=== PATIENT | female | born 1965 | race Caucasian/White ===

== ENCOUNTER → 2022-05-09 | Outpatient (CLI) | payer MEDICARE, OTHER ==
[~2022-05-09] MED LIST: CELEXA40 MG PO; DELSYM30 MG/5 ML PO; EXPECTORANT200 MG PO; FLONASE 0.05% N16 GM; IBUPROFEN800 MG PO; NEURONTIN 300300 MG PO; PENVEE K 500 M500 MG PO; PREDNISONE 50 M50 MG PO; PREMARIN0.625 MG PO; ZANTAC 150 MG150 MG PO
== END ==
LOC: KOH-I 10:43
DX: Z87.891 Personal history of nicotine dependence (principal); R91.1 Solitary pulmonary nodule
CPT/HCPCS: 71271

== ENCOUNTER → 2022-05-30 | Outpatient (CLI) | payer MEDICARE, OTHER | LOC: EXRD 05-21 10:30 | DX: Z13.820 Encounter for screening for osteoporosis (principal); Z78.0 Asymptomatic menopausal state | CPT/HCPCS: 77080 ==

== ENCOUNTER → 2022-07-18 | Outpatient (CLI) | payer MEDICARE, OTHER | LOC: EXRD 10:35 | DX: M54.50 Low back pain, unspecified (principal); M51.36 Other intervertebral disc degeneration, lumbar region | CPT/HCPCS: 72110 ==